=== PATIENT | male | born 1995 | race Caucasian/White ===

== ENCOUNTER → 2016-11-11 | Outpatient (CLI) | payer BC ==
--- NOTE | 2016-11-11 09:54 | DIAGNOSTIC IMAGING REPORT ---
RENAL ULTRASOUND CLINICAL HISTORY: Suprapubic pain. Urinary frequency. Low back pain. COMPARISON STUDY: None. TECHNIQUE: Sonography of the kidneys and the urinary bladder was performed. FINDINGS: The right kidney measures 11.6 x 5.2 x 6.2 cm and the left measures 12.4 x 4.9 x 5.8 cm. There is no hydronephrosis. Renal echogenicity, size and cortical thickness are normal. Both ureteral jets were identified. No calculi or masses are identified by sonography. IMPRESSION: Normal renal ultrasound. No hydronephrosis. Electronically signed by: Sebastián Raman M.D. 11/11/2016 9:53 AM Dictated Date/Time: 11/11/2016 9:52 AM
== END | disposition home or self-care (01) ==
LOC: C.ULTR 09:22
PROVIDERS: ATTEND Physician Assistant
DX: M54.5 Low back pain (principal)